=== PATIENT | male | born 1955 | race Caucasian/White ===

== ENCOUNTER → 2017-06-21 | Outpatient (CLI) | payer OTHER ==
[~2017-06-21] MED LIST: METO-333 PO; RIVA20TA PO; Sotalol Hcl PO
--- NOTE | 2017-06-21 11:48 | Diagnostic Imaging Report ---
EXAMINATION: Right lower extremity duplex venous ultrasound. TECHNIQUE: DVT protocol. Multiple sonographic images with color Doppler and waveform interrogation were performed of the right lower extremity veins with compression and augmentation maneuvers. INDICATION: Right leg swelling. FINDINGS: The right lower extremity veins from the groin to below the knee veins were examined with normal color-flow, compressibility and normal waveform demonstrated. The great saphenous vein is patent. IMPRESSION: No evidence of DVT in the right lower extremity. Dictated by: Dictated on workstation # [id number]
== END ==
LOC: RAD 10:29
PROVIDERS: ATTEND Internal Medicine Cardiovascular Disease
DX: R22.41 Localized swelling, mass and lump, right lower limb (principal); I48.0 Paroxysmal atrial fibrillation; R00.2 Palpitations

== ENCOUNTER → 2019-05-30 | Outpatient (CLI) | payer OTHER ==
[~2019-05-30] MED LIST changes: -RIVA20TA PO; +RIVA20TA2 PO
[2019-05-30 12:29] LABS: BASOPHILS % (AUTO) 0 % (0-10); EOSINOPHILS # (AUTO) 0.3 10^3/uL (0.0-0.3); EOSINOPHILS % (AUTO) 4 % (0-10); HEMATOCRIT 45 % (40-54); HEMOGLOBIN 15.5 G/DL (13.3-17.7); LYMPHOCYTES # (AUTO) 2.1 X 10^3 (1.0-4.0); LYMPHOCYTES % (AUTO) 27 % (12-44); MEAN CORPUSCULAR HEMOGLOBIN 34 PG (25-34); MEAN CORPUSCULAR HGB CONC 35 G/DL (32-36); MEAN CORPUSCULAR VOLUME 97 FL (80-99); MEAN PLATELET VOLUME 12.4 FL (7.4-10.4); MONOCYTES # (AUTO) 0.9 X 10^3 (0.0-1.0); MONOCYTES % (AUTO) 11 % (0-12); NEUTROPHILS # (AUTO) 4.4 X 10^3 (1.8-7.8); NEUTROPHILS % (AUTO) 58 % (42-75); PLATELET COUNT 187 10^3/uL (130-400); RED CELL DISTRIBUTION WIDTH 13.4 % (10.0-14.5); WHITE BLOOD COUNT 7.6 10^3/uL (4.3-11.0)
[2019-05-30 12:48] LABS: BUN/CREATININE RATIO 13; CALCIUM 9.2 MG/DL (8.5-10.1); CARBON DIOXIDE 23 MMOL/L (21-32); CHLORIDE 105 MMOL/L (98-107); CREATININE SERUM 1.11 MG/DL (0.60-1.30); GFR ESTIMATED > 60; GLUCOSE 99 MG/DL (70-105); POTASSIUM 4.4 MMOL/L (3.6-5.0); SODIUM 139 MMOL/L (135-145)
== END ==
LOC: LAB 12:16
PROVIDERS: ATTEND Internal Medicine Cardiovascular Disease
DX: I48.0 Paroxysmal atrial fibrillation (principal)
CPT/HCPCS: 36415; 80048; 83735; 85025

== ENCOUNTER → 2019-06-10 | Outpatient (CLI) | payer OTHER ==
[~2019-06-10] VITALS: Ht 188 cm; Wt 131.0 kg
[~2019-06-10] MED LIST changes: +CATHETER FLUSH 10 ML SYR IV PRN
== END ==
LOC: CARD 06:39
PROVIDERS: ATTEND Internal Medicine Cardiovascular Disease
DX: R00.2 Palpitations (principal)
CPT/HCPCS: 93017

== ENCOUNTER → 2019-06-16 | Outpatient (CLI) | payer OTHER ==
[~2019-06-16] MED LIST changes: -CATHETER FLUSH 10 ML SYR IV PRN
== END ==
LOC: CARD 10:23
PROVIDERS: ATTEND Internal Medicine Cardiovascular Disease
DX: I34.0 Nonrheumatic mitral (valve) insufficiency (principal); I51.7 Cardiomegaly; I48.0 Paroxysmal atrial fibrillation; R00.2 Palpitations
CPT/HCPCS: 93306

== ENCOUNTER 2022-07-16 03:37 | Observation (INO) | payer MEDICARE, OTHER ==
[~2022-07-16] VITALS: Ht 187.9 cm; Wt 127.3 kg
[2022-07-16] MEDS ORDERED: dilTIAZem DRIP PRE-MIX 125 ML IV SCH (04:00)
--- NOTE | 2022-07-16 04:12 | ED General ---
General Chief Complaint: Cough/Cold/Flu Symptoms Stated Complaint: SOA/COUGH Source of Information: Patient Exam Limitations: No Limitations History of Present Illness Date Seen by Provider: Jul 16, 2022 Time Seen by Provider: 03:34 Initial Comments 66-year-old male presents for chest congestion, shortness of breath since . No fevers or chills. Cough is nonproductive. Does feel significantly short of breath, especially with exertion. No sick contacts. Does have a history of atrial fibrillation. States he has not taken any medicine for atrial fibrillation since the onset of COVID as his doctor's office would not refill his medicines until he was seen in the office but they were also not seeing patients in the office. He is not on any anticoagulation. He is not having any chest pain. Allergies and Home Medications Allergies Coded Allergies: No Known Drug Allergies (Unverified , 02/11/16) Patient Home Medication List Home Medication List Reviewed: Yes Metoprolol Tartrate (Metoprolol Tartrate) 25 Mg Tablet, 25 MG PO BID Prescribed by: TON DIAZ on 02/13/16908 Rivaroxaban (Xarelto Tablet) 20 Mg Tablet, 20 MG PO DAILY@1700 Prescribed by: TON DIAZ on 02/13/16908 [Sotalol Hcl] 80 MG TAB, 80 MG PO BID Prescribed by: TON DIAZ on 02/13/16908 Review of Systems Review of Systems Constitutional: no symptoms reported EENTM: no symptoms reported Respiratory: cough, short of breath Cardiovascular: no symptoms reported Gastrointestinal: no symptoms reported Genitourinary: no symptoms reported Musculoskeletal: no symptoms reported Skin: no symptoms reported Psychiatric/Neurological: No Symptoms Reported Hematologic/Lymphatic: No Symptoms Reported Immunological/Allergic: no symptoms reported Past Kmmozhv-Demivy-Nzudwj Hx Patient Social History Tobacco Use?: No Substance use?: No Alcohol Use?: No Immunizations Up To Date Tetanus Booster (TDap): Unknown Influenza Vaccine Up-to-Date: No; Not Current Seasonal Allergies Seasonal Allergies: No Past Medical History Surgery/Hospitalization HX: AFIB (BUT DOES NOT TAKE MEDICINE SINCE "COVID STARTED" PER PT) Pneumonia Currently Using CPAP: No Currently Using BIPAP: No Reproductive Disorders: No Sexually Transmitted Disease: No HIV/AIDS: No Polyps Loss of Vision: Denies Hearing Impairment: Denies Adverse Reaction/Blood Tranf: No Family Medical History Reviewed Nursing Family Hx No Pertinent Family Hx Physical Exam Vital Signs Vital Signs - First Documented 07/16/22 03:46 Temp 36.6 Pulse 122 Resp 22 B/P (MAP) 138/109 (119) Pulse Ox 96 O2 Delivery Room Air Capillary Refill : Less Than 3 Seconds Height, Weight, BMI Height: 6'2.00" Weight: 261lbs. 0.0oz. [id number]; 37.06 BMI Method:Stated General Appearance: No Apparent Distress, WD/WN HEENT: PERRL/EOMI, TMs Normal, Normal ENT Inspection, Pharynx Normal Neck: Full Range of Motion, Normal Inspection, Non Tender, Supple Respiratory: Chest Non Tender, Lungs Clear, Normal Breath Sounds, No Accessory Muscle Use, No Respiratory Distress Cardiovascular: No Edema, No Gallop, No JVD, No Murmur, Normal Peripheral Pulses, Irregularly Irregular, Tachycardia Gastrointestinal: Normal Bowel Sounds, No Organomegaly, No Pulsatile Mass, Non Tender, Soft Extremity: Normal Capillary Refill, Normal Inspection, Normal Range of Motion, Non Tender, No Calf Tenderness, No Pedal Edema Neurologic/Psychiatric: Alert, Oriented x3, No Motor/Sensory Deficits Skin: Normal Color, Warm/Dry Progress/Results/Core Measures Suspected Sepsis SIRS Temperature: Pulse: 181 Respiratory Rate: Laboratory Tests 07/16/22 04:03: White Blood Count 12.0H Blood Pressure 151 /127 Mean: 135 Laboratory Tests 07/16/22 04:03: Creatinine 1.29, Platelet Count 183, Total Bilirubin 2.6H Results/Orders Lab Results Laboratory Tests Test 07/16/22 04:00 07/16/22 04:03 Range/Units Influenza Type A (RT-PCR) Not Detected Not Detecte Influenza Type B (RT-PCR) Not Detected Not Detecte SARS-CoV-2 RNA (RT-PCR) Not Detected Not Detecte White Blood Count 12.0 H 4.3-11.0 10^3/uL Red Blood Count 4.06 L 4.30-5.52 10^6/uL Hemoglobin 13.5 13.3-17.7 g/dL Hematocrit 41 40-54 % Mean Corpuscular Volume 102 H 80-99 fL Mean Corpuscular Hemoglobin 33 25-34 pg Mean Corpuscular Hemoglobin Concent 33 32-36 g/dL Red Cell Distribution Width 14.6 H 10.0-14.5 % Platelet Count 183 130-400 10^3/uL Mean Platelet Volume 14.5 H 9.0-12.2 fL Immature Granulocyte % (Auto) 0 % Neutrophils (%) (Auto) 79 H 42-75 % Lymphocytes (%) (Auto) 10 L 12-44 % Monocytes (%) (Auto) 10 0-12 % Eosinophils (%) (Auto) 1 0-10 % Basophils (%) (Auto) 0 0-10 % Neutrophils # (Auto) 9.5 H 1.8-7.8 10^3/uL Lymphocytes # (Auto) 1.2 1.0-4.0 10^3/uL Monocytes # (Auto) 1.2 H 0.0-1.0 10^3/uL Eosinophils # (Auto) 0.1 0.0-0.3 10^3/uL Basophils # (Auto) 0.1 0.0-0.1 10^3/uL Immature Granulocyte # (Auto) 0.1 0.0-0.1 10^3/uL Percent Immature Platelet Fraction 20.4 H 0.0-7.6 % Sodium Level 139 135-145 MMOL/L Potassium Level 3.8 3.6-5.0 MMOL/L Chloride Level 107 98-107 MMOL/L Carbon Dioxide Level 18 L 21-32 MMOL/L Anion Gap 14 5-14 MMOL/L Blood Urea Nitrogen 13 7-18 MG/DL Creatinine 1.29 0.60-1.30 MG/DL Estimat Glomerular Filtration Rate 61 BUN/Creatinine Ratio 10 Glucose Level 124 H 70-105 MG/DL Calcium Level 9.1 8.5-10.1 MG/DL Corrected Calcium 9.1 8.5-10.1 MG/DL Magnesium Level 1.7 1.6-2.4 MG/DL Total Bilirubin 2.6 H 0.1-1.0 MG/DL Aspartate Amino Transf (AST/SGOT) 36 H 5-34 U/L Alanine Aminotransferase (ALT/SGPT) 43 0-55 U/L Alkaline Phosphatase 87 40-136 U/L Troponin I 0.040 H <0.028 NG/ML B-Type Natriuretic Peptide 447.6 H <100.0 PG/ML Total Protein 6.9 6.4-8.2 GM/DL Albumin 4.0 3.2-4.5 GM/DL Smear Scan NO CLUMPS OBSERVED My Orders Orders - DEONNAVENTURA Hui DO Ekg Tracing (07/16/22 03:54) Magnesium (07/16/22 03:55) Chest 1 View, Ap/Pa Only (07/16/22 03:55) Troponin I Barbara (07/16/22 03:55) Bnp Barbara (07/16/22 03:55) Procalcitonin (Pct) (07/16/22 03:55) Cbc With Automated Diff (07/16/22 03:55) Comprehensive Metabolic Panel (07/16/22 03:55) Covid 19 Inhouse Test (07/16/22 03:55) Influenza A And B By Pcr (07/16/22 03:55) Diltiazem Injection (Cardizem Injection) (07/16/22 04:00) Diltiazem Drip Pre-Mix (Cardizem Drip Pr (07/16/22 04:00) Ed Admission (Communication) (07/16/22 05:27) Medications Given in ED Current Medications Medications Dose Ordered Sig/Feliberto Route Start Time Stop Time Status Last Admin Dose Admin Diltiazem HCl 10 mg ONCE ONCE IVP 07/16/22 04:00 07/16/22 04:02 DC 07/16/22 04:05 10 MG Vital Signs/I&O 07/16/22 07/16/22 07/16/22 07/16/22 03:46 03:46 04:05 04:06 Temp 36.6 Pulse 122 181 181 Resp 22 B/P (MAP) 138/109 (119) 151/127 Pulse Ox 96 O2 Delivery Room Air Room Air Capillary Refill : Less Than 3 Seconds Blood Pressure Mean: 135 ECG EKG : Comment Atrial fibrillation with a rate of 106 bpm. Normal intervals outside of GA interval. Left axis deviation. No ST or T wave abnormalities. No ectopy. No STEMI. Departure Communication (Admissions) 05: Spoke to Dr Ibanez. Accepts admission to ICU. Requests single dose therapeutic lovenox which i have ordered. I will write bridging orders. Impression Primary Impression: Atrial fibrillation with rapid ventricular response Additional Impression: Elevated troponin Disposition: ADMITTED INPATIENT Condition: Stable Admissions Decision to Admit Reason: Admit from ER (General) Departure-Patient Inst. Referrals: NO,LOCAL PHYSICIAN (PCP/Family) Primary Care Physician VENTURA YING DO Jul 16, 2022 04:12
[2022-07-16 04:33] LABS: BASOPHILS # (AUTO) 0.1 10^3/uL (0.0-0.1); BASOPHILS % (AUTO) 0 % (0-10); LYMPHOCYTES % (AUTO) 10 % (12-44); MEAN CORPUSCULAR HEMOGLOBIN 33 pg (25-34); MEAN CORPUSCULAR VOLUME 102 fL (80-99)
[2022-07-16 04:35] LABS: EOSINOPHILS # (AUTO) 0.1 10^3/uL (0.0-0.3); EOSINOPHILS % (AUTO) 1 % (0-10); HEMATOCRIT 41 % (40-54); HEMOGLOBIN 13.5 g/dL (13.3-17.7); LYMPHOCYTES # (AUTO) 1.2 10^3/uL (1.0-4.0); MEAN CORPUSCULAR HGB CONC 33 g/dL (32-36); MEAN PLATELET VOLUME 14.5 fL (9.0-12.2); MONOCYTES # (AUTO) 1.2 10^3/uL (0.0-1.0); MONOCYTES % (AUTO) 10 % (0-12); NEUTROPHILS # (AUTO) 9.5 10^3/uL (1.8-7.8); NEUTROPHILS % (AUTO) 79 % (42-75); PLATELET COUNT 183 10^3/uL (130-400)
[2022-07-16 04:53] LABS: POTASSIUM 3.8 MMOL/L (3.6-5.0)
[2022-07-16 04:54] LABS: CALCIUM 9.1 MG/DL (8.5-10.1)
[2022-07-16 04:55] LABS: TOTAL PROTEIN 6.9 GM/DL (6.4-8.2)
[2022-07-16 04:57] LABS: BILIRUBIN,TOTAL 2.6 MG/DL (0.1-1.0)
[2022-07-16 04:58] LABS: SMEAR SCAN COMMENT NO CLUMPS OBSERVED
[2022-07-16 04:59] LABS: CREATININE SERUM 1.29 MG/DL (0.60-1.30)
[2022-07-16 05:02] LABS: MAGNESIUM 1.7 MG/DL (1.6-2.4)
[2022-07-16] MEDS ORDERED: ENOXAPARIN 60 MG/0.6 ML (LOVENOX) SYR SC ONE (05:30)
[2022-07-16] MEDS ORDERED: CATHETER FLUSH 10 ML SYR IVP PRN (06:30)
[2022-07-16 06:31] VITALS: BP 128/112
[2022-07-16] MEDS ORDERED: RT-ALBUTEROL SULF 2.5 MG/3 ML PRE-MIX VIAL INH PRN (06:45)
[2022-07-16] MEDS ORDERED: DIGOXIN 0.25 MG/ML (LANOXIN) 2 ML AMP IV ONE (06:45)
--- NOTE | 2022-07-16 06:47 | Tele-ICU Progress Note ---
Subjective Date Seen by a Provider: Jul 16, 2022 Time Seen by a Provider: 06:45 Subjective/Events-last exam (Tele-ICU Physician , consultation) Available chart/ vitals / labs / Images reviewed H&P is from ER notes Patient's information available about PMH, allergy reviewed in EMR. ROS as per chart and RN report Video assessment done using teleICU camera, rest of exam as per RN Discussed with RN. This patient is admitted with atrial fibrillation with rapid ventricular rate currently on Cardizem drip with maximum dose of 15 mg/h still his heart rate is in [id number] for management. No telemetry ICU consult requested but patient is seen for telemetry ICU protocol. Discussed with the PYRIDINE RECOVERY OPERATOR and the patient. I have ordered digoxin 0.5 mg IV push x1 to see whether the heart rate will come down. Cardiology consultation has been requested Review of Systems General: Other (obese and stable) Sepsis Event Evaluation Height, Weight, BMI Height: 6'2.00" Weight: 261lbs. 0.0oz. 118.862189xb; 37.78 BMI Method:Stated Exam Exam Patient acknowledged, consented, and participated in this virtual visit which was conducted using real time audio/video Vital Signs Date Time Temp Pulse Resp B/P (MAP) Pulse Ox O2 Delivery O2 Flow Rate FiO2 07/16/22 06:31 36.6 123 94 21 07/16/22 06:10 36.6 123 20 128/112 94 Room Air 07/16/22 04:06 181 07/16/22 04:05 181 151/127 07/16/22 03:46 36.6 122 22 138/109 (119) 96 Room Air 07/16/22 03:46 Room Air Height & Weight Height: 6'2.00" Weight: 261lbs. 0.0oz. 118.062288tk; 37.78 BMI Method:Stated General Appearance: No Apparent Distress, WD/WN HEENT: PERRL/EOMI, TMs Normal, Normal ENT Inspection, Pharynx Normal Neck: Full Range of Motion, Normal Inspection, Non Tender, Supple Respiratory: Chest Non Tender, Lungs Clear, Normal Breath Sounds, No Accessory Muscle Use, No Respiratory Distress Cardiovascular: No Edema, No Gallop, No JVD, No Murmur, Normal Peripheral Pulses, Irregularly Irregular, Tachycardia Capillary Refill: Less Than 3 Seconds Extremity: Normal Capillary Refill, Normal Inspection, Normal Range of Motion, Non Tender, No Calf Tenderness, No Pedal Edema Neurologic/Psychiatric: Alert, Oriented x3, No Motor/Sensory Deficits Skin: Normal Color, Warm/Dry Results Lab Laboratory Tests 07/16/22 04:03 Assessment/Plan Assessment/Plan 1. Afib with rvr. plan continue cardiazem drip and give digoxin 0.5 mg ivp X1. further management per Cardiolgy Critical Care: Critically Ill Patient Time spent with patient (mins): 15 JOANIE COMBS MD Jul 16, 2022 06:47
[2022-07-16] MEDS: RT-ALBUTEROL SULF 2.5 MG/3 ML PRE-MIX VIAL INH SCH ×3 (08:25→21:32)
--- NOTE | 2022-07-16 08:43 | Diagnostic Imaging Report ---
INDICATION: Dyspnea, cough. TECHNIQUE: Single view chest 4:34 AM. CORRELATION STUDY: 02/12/2016 FINDINGS: Cardiac enlargement appears changed and more prominent from prior. Vasculature overall within normal limits. The lungs are clear with no consolidating infiltrate. There is no significant effusion or pneumothorax. IMPRESSION: 1. Cardiac enlargement, appears changed from prior. Nonspecific at to etiology but can be seen with cardiomyopathy and/or perhaps pericardial effusion. No overt failure. Dictated by: Dictated on workstation # [id number]
[2022-07-16] MEDS ORDERED: polyethylene glycoL POWDER 17 GM (MIRALAX) PACK PO PRN (09:00)
[2022-07-16] MEDS ORDERED: ANTACID SUSP 30 ML UDC (MYLANTA) PO PRN (09:00)
[2022-07-16] MEDS ORDERED: MELATONIN 3 MG TABLET PO PRN (09:00)
[2022-07-16] MEDS ORDERED: diphenhydrAMINE 50 MG/ML INJ (BENADRYL) IVP PRN (09:00)
[2022-07-16] MEDS: SENNOSIDES 8.6 MG (SENOKOT) TAB PO SCH ×2 (09:00→19:56)
[2022-07-16] MEDS ORDERED: CALCIUM CARBONATE 500 MG (TUMS) TAB.CHEW PO PRN (09:00)
[2022-07-16] MEDS: DOCUSATE SODIUM 100 MG (COLACE) CAP PO SCH ×2 (09:00→19:56)
[2022-07-16] MEDS ORDERED: MILK OF MAGNESIA 400 MG/5 ML 30 ML UDC PO PRN (09:00)
[2022-07-16] MEDS ORDERED: LACTULOSE SYRUP 10GM/15ML (ENULOSE) 30ML UDC PO PRN (09:00)
[2022-07-16] MEDS ORDERED: ACETAMINOPHEN 325 MG TABLET PO PRN (09:00)
[2022-07-16] MEDS ORDERED: ONDANSETRON 4 MG (ZOFRAN) ORAL DISSOLVE TAB PO PRN (09:00)
[2022-07-16] MEDS ORDERED: BISACODYL 10 MG SUPP (DULCOLAX) PR PRN (09:00)
[2022-07-16] MEDS ORDERED: ONDANSETRON 4 MG/2 ML (SDV) Z0FRAN IV PRN (09:00)
[2022-07-16] MEDS ORDERED: diphenhydrAMINE 25 MG TAB (BENADRYL) PO PRN (09:00)
[2022-07-16 09:11] LABS: TRIGLYCERIDES 122 MG/DL (<150); VLDL CHOLESTEROL 24 MG/DL (5-40)
[2022-07-16 09:16] LABS: CHOLESTEROL 114 MG/DL (< 200)
[2022-07-16 09:17] LABS: HDL CHOLESTEROL 45 MG/DL (40-60)
[2022-07-16] MEDS: dilTIAZem DRIP PRE-MIX 125 ML IV SCH ×2 (09:34→19:55)
--- NOTE | 2022-07-16 09:55 | Consultation-Cardiology ---
HPI-Cardiology Cardiology Consultation: Date of Consultation 07/16/22 Date of Admission 07/16/22 Attending Physician Kaye,Local Physician Admitting Physician Admitting Physician: Lynn Ibanez MD Attending Physician: Lynn Ibanez MD Consulting Physician REGGIE ALDANA JR, MD HPI: Time Seen by a Provider: 10:04 Chief Complaint: REASON FOR CONSULTATION: Atrial fibrillation and abnormal troponin level. I had the pleasure of seeing Michael in the intensive care unit at [facility] in [place], [place] today. He was previously following with one of my partners, Dr. Adorno. However, he has not been seen since the beginning of the COVID pandemic. He was not able to get refills on his medication and stopped his metoprolol, sotalol and Xarelto somewhere around 2 or 3 years ago. He had been doing reasonably well until the past several days when he started developing increasing dyspnea on exertion. He may have had some paroxysmal nocturnal dyspnea on a couple nights. He did not seek immediate medical attention. He denies any palpitations. Early this morning he got up to use the bathroom and was again experiencing dyspnea on exertion just going into the bathroom from his bedroom and he became concerned and came to the hospital for further evaluation. He was found to be in atrial fibrillation with rapid ventricular rate and was placed on intravenous diltiazem and admitted for further treatment and evaluation. Early this morning he was still having tachycardia and the eICU at the nurse give 1 dose of intravenous digoxin and his heart rate improved. When I saw the patient, he felt as though his breathing was beginning to improve. He denies any chest discomfort, orthopnea, palpitations, lightheadedness, or syncope. He has chronic, intermittent right lower extremity edema of unknown etiology that has been unchanged. He has also had a slight cough productive of some whitish and greenish sputum. Before he came to the hospital this morning, he thinks he may have had a low-grade fever last evening. Because of the atrial fibrillation, a cardiology consultation was requested. Certain portions of this document may have been dictated utilizing voice recognition technology. Inherent to this technology, typographical and grammatical errors may exist. As much as I am diligent to identify and correct these mistakes, some errors may remain in the document. Review of Systems-Cardiology Review of Systems Other comments Review of 10 organ systems is as per the history of present illness, otherwise negative. HQS-Mutnic-Mnexop Hx Patient Social History Marrital Status: Smoking Status: Never a Smoker Have you traveled recently?: No Alcohol Use?: No Pt feels they are or have been: No Immunizations Up To Date Tetanus Booster (TDap): Unknown Past Medical History PMH As described under Assessment. Family Medical History Family Medical History: The patient does not know of any family history of premature coronary artery disease in first-degree relatives. Allergies and Home Medications Allergies Coded Allergies: No Known Drug Allergies (Unverified , 02/11/16) Patient Home Medication List Home Medication List Reviewed: Yes Metoprolol Tartrate (Metoprolol Tartrate) 25 Mg Tablet, 25 MG PO BID Prescribed by: TON DIAZ on 02/13/16908 Rivaroxaban (Xarelto Tablet) 20 Mg Tablet, 20 MG PO DAILY@1700 Prescribed by: TON DIAZ on 02/13/16908 [Sotalol Hcl] 80 MG TAB, 80 MG PO BID Prescribed by: TON DIAZ on 02/13/16908 Exam Vital Signs Vital Signs Date Time Temp Pulse Resp B/P (MAP) Pulse Ox O2 Delivery O2 Flow Rate FiO2 07/16/22 09:34 116 135/98 07/16/22 09:00 23 97 Room Air 07/16/22 07:43 36.8 07/16/22 06:31 21 Physical Exam General: Alert. No acute distress. Well nourished and appears stated age. He is obese. Eye: Extraocular movements are intact. Conjunctivae are clear. There are no xanthelasma. HENT: Normocephalic. Atraumatic. Carotid pulsations 2/2 without bruits. Neck: Jugular venous pressure does not appear elevated. No thyromegaly appreciated. Respiratory: Lungs have some faint scattered wheezes bilaterally. Respirations are non-labored. Breath sounds are equal. Symmetrical chest wall expansion. Cardiovascular: Normal rate. Irregular rhythm. Distant S1/S2. No murmur. No gallop. Point of maximal impulse is not appear displaced. Good pulses equal in all extremities. 1+ right lower extremity edema without venous stasis changes. Gastrointestinal: Soft. Normal bowel sounds. Skin: Skin turgor is normal. There is no pallor. Musculoskeletal: No kyphosis or scoliosis appreciated. Neurologic: Alert and oriented to person, place, time. Cranial nerves 3-12 appear grossly intact. The patient has good motor tone strength in the upper and lower extremities bilaterally. Psychiatric: Cooperative. Appropriate mood & affect. Labs Laboratory Tests Test 07/16/22 04:00 07/16/22 04:03 07/16/22 09:28 Range/Units Influenza Type A (RT-PCR) Not Detected Not Detecte Influenza Type B (RT-PCR) Not Detected Not Detecte SARS-CoV-2 RNA (RT-PCR) Not Detected Not Detecte White Blood Count 12.0 H 4.3-11.0 10^3/uL Red Blood Count 4.06 L 4.30-5.52 10^6/uL Hemoglobin 13.5 13.3-17.7 g/dL Hematocrit 41 40-54 % Mean Corpuscular Volume 102 H 80-99 fL Mean Corpuscular Hemoglobin 33 25-34 pg Mean Corpuscular Hemoglobin Concent 33 32-36 g/dL Red Cell Distribution Width 14.6 H 10.0-14.5 % Platelet Count 183 130-400 10^3/uL Mean Platelet Volume 14.5 H 9.0-12.2 fL Immature Granulocyte % (Auto) 0 % Neutrophils (%) (Auto) 79 H 42-75 % Lymphocytes (%) (Auto) 10 L 12-44 % Monocytes (%) (Auto) 10 0-12 % Eosinophils (%) (Auto) 1 0-10 % Basophils (%) (Auto) 0 0-10 % Neutrophils # (Auto) 9.5 H 1.8-7.8 10^3/uL Lymphocytes # (Auto) 1.2 1.0-4.0 10^3/uL Monocytes # (Auto) 1.2 H 0.0-1.0 10^3/uL Eosinophils # (Auto) 0.1 0.0-0.3 10^3/uL Basophils # (Auto) 0.1 0.0-0.1 10^3/uL Immature Granulocyte # (Auto) 0.1 0.0-0.1 10^3/uL Percent Immature Platelet Fraction 20.4 H 0.0-7.6 % Sodium Level 139 135-145 MMOL/L Potassium Level 3.8 3.6-5.0 MMOL/L Chloride Level 107 98-107 MMOL/L Carbon Dioxide Level 18 L 21-32 MMOL/L Anion Gap 14 5-14 MMOL/L Blood Urea Nitrogen 13 7-18 MG/DL Creatinine 1.29 0.60-1.30 MG/DL Estimat Glomerular Filtration Rate 61 BUN/Creatinine Ratio 10 Glucose Level 124 H 70-105 MG/DL Calcium Level 9.1 8.5-10.1 MG/DL Corrected Calcium 9.1 8.5-10.1 MG/DL Magnesium Level 1.7 1.6-2.4 MG/DL Total Bilirubin 2.6 H 0.1-1.0 MG/DL Aspartate Amino Transf (AST/SGOT) 36 H 5-34 U/L Alanine Aminotransferase (ALT/SGPT) 43 0-55 U/L Alkaline Phosphatase 87 40-136 U/L Troponin I 0.040 H 0.046 H <0.028 NG/ML B-Type Natriuretic Peptide 447.6 H <100.0 PG/ML Total Protein 6.9 6.4-8.2 GM/DL Albumin 4.0 3.2-4.5 GM/DL Triglycerides Level 122 <150 MG/DL Cholesterol Level 114 < 200 MG/DL LDL Cholesterol Direct 54 1-129 MG/DL VLDL Cholesterol 24 5-40 MG/DL HDL Cholesterol 45 40-60 MG/DL Procalcitonin 0.04 <0.10 NG/ML Serum Alcohol < 10 <10 MG/DL Smear Scan NO CLUMPS OBSERVED ECG Impression ECG Comment Electrocardiogram from this morning showed atrial fibrillation with a rapid ventricular rate at 186 bpm with diffuse, nonspecific ST-T wave changes. Diagnosis/Problems Diagnosis/Problems (1) Persistent atrial fibrillation Assessment & Plan: He has atrial fibrillation of unknown duration. He had been on sotalol in the past but has not taken this for 2 or 3 years as noted above. His heart rate improved with intravenous diltiazem and 1 dose of intravenous digoxin. I will restart his metoprolol tartrate 25 mg twice a day that he was taking at home. I will resume rivaroxaban. I will obtain an echocardiogram in the morning. If we can get his heart rate under control with oral medication, we could consider discharging him to home tomorrow and have him return for an outpatient cardioversion in 4-6 weeks after an appropriate duration of anticoagulation. If we cannot get his heart rate under control, he may need a transesophageal echocardiogram and possible cardioversion prior to discharge. (2) Elevated troponin Status: Acute Assessment & Plan: I suspect he had a type II non-ST elevation myocardial infarction due to supply/demand mismatch from the tachycardia. I will start him on low strength aspirin. I will also start beta-stella. At some point, he probably will need an ischemic evaluation. I will leave this up to the discretion of his regular civil drafter, Dr. Adorno. (3) Primary hypertension Assessment & Plan: Although he does not report a history of hypertension, his blood pressures are borderline elevated while on intravenous diltiazem. I suspect he does not fact have hypertension. I will start metoprolol tartrate as outlined above. (4) Shortness of breath Assessment & Plan: I suspect this could be due to the atrial fibrillation. His BNP level is mildly elevated. His chest x-ray did not show overt pulmonary edema or an infiltrate but he does have a cough. I will give him 1 dose of intravenous furosemide and I have ordered a two-view chest x-ray for the morning. (5) Obesity Status: Chronic Assessment & Plan: He has actually been working on weight loss prior to admission. REGGIE ALDANA JR, MD Jul 16, 2022 09:55
[2022-07-16] MEDS ORDERED: meTOprolol TARTRATE 25 MG (LOPRESSOR) TABLET PO ONE (10:00)
[2022-07-16] MEDS ORDERED: ASPIRIN E.C. 81 MG (ECOTRIN) TAB PO ONE (10:00)
[2022-07-16] MEDS ORDERED: FUROSEMIDE 40 MG/4 ML INJ (LASIX) IVP ONE (10:15)
[2022-07-16] MEDS: RIVAROXABAN 20 MG TABLET (XARELTO) PO SCH (18:26)
[2022-07-16] MEDS: CATHETER FLUSH 10 ML SYR IVP SCH ×2 (18:26→20:46)
[2022-07-16] MEDS: meTOprolol TARTRATE 25 MG (LOPRESSOR) TABLET PO SCH (20:54)
--- NOTE | 2022-07-16 21:47 | History & Physical-Hospitalist ---
History of Present Illness HPI/Chief Complaint Winstno Merlos is a 66 year old male with PMH AFib who presented with shortness of breath. He denies chest pain and palpitations. He denies fevers and chills. He has had a dry cough. He reports dyspnea with exertion, but not with rest. He denies leg swelling. He denies nocturnal dyspnea. He does not smoke, drink, or use illicit drugs. He has not been taking his prescribed medications for several years, since before [facility]. Source: patient Exam Limitations: no limitations Date Seen 07/16/22 Time Seen by a Provider: 10:10 Attending Physician No,Local Physician PCP Admitting Physician: Lynn Ibanez MD Attending Physician: Lynn Ibanez MD Referring Physician Date of Admission Jul 16, 2022 at 05:30 Home Medications & Allergies Home Medications Reviewed patient Home Medication Reconciliation performed by pharmacy medication reconciliations airplane technician and/or nursing. Patients Allergies have been reviewed. Allergies Allergies Coded Allergies No Known Drug Allergies (Unverified02/11/16) Past Leerhkv-Kilgpa-Yartoh Hx Patient Social History Marrital Status: Tobacco Use?: No Smoking Status: Never a Smoker Smokeless Tobacco Frequency: Never a User Use of E-Cig and/or Vaping dev: No Substance use?: No Alcohol Use?: No Pt feels they are or have been: No Immunizations Up To Date Tetanus Booster (TDap): Unknown Seasonal Allergies Seasonal Allergies: No Current Status Advance Directives: No Primary Language: Welsh Preferred Spoken Language: Welsh Implanted or Applied Medical D: None Past Medical History Pneumonia Currently Using CPAP: No Currently Using BIPAP: No Sexually Transmitted Disease: No HIV/AIDS: No Polyps Loss of Vision: Denies Hearing Impairment: Denies Adverse Reaction/Blood Tranf: No Family Medical History Reviewed Nursing Family Hx No Pertinent Family Hx Review of Systems Constitutional: no symptoms reported EENTM: no symptoms reported Respiratory: dyspnea on exertion, short of breath Cardiovascular: no symptoms reported Gastrointestinal: no symptoms reported Physical Exam Physical Exam Vital Signs Vital Signs - First Documented 07/16/22 07/16/22 03:46 06:31 Temp 36.6 Pulse 122 Resp 22 B/P (MAP) 138/109 (119) Pulse Ox 96 O2 Delivery Room Air FiO2 21 Capillary Refill : Less Than 3 Seconds Height, Weight, BMI Height: 6'2.00" Weight: 261lbs. 0.0oz. 118.192666xy; 37.78 BMI Method:Stated General Appearance: No Apparent Distress, Obese HEENT: PERRL/EOMI, Pharynx Normal Neck: Normal Inspection, Supple Respiratory: Lungs Clear, No Respiratory Distress Cardiovascular: Irregularly Irregular, Tachycardia Gastrointestinal: Normal Bowel Sounds, Non Tender, Soft Extremity: Normal Inspection, No Pedal Edema Neurologic/Psychiatric: Alert, Oriented x3, Normal Mood/Affect Skin: Normal Color, Warm/Dry Results Results/Procedures Labs Laboratory Tests 07/16/22 04:03 Patient resulted labs reviewed. Imaging: Reviewed Imaging Report Assessment/Plan Admission Diagnosis AFib with RVR Admission Status: Observation Assessment and Plan AFib with RVR Nonadherent with medication regimen NSTEMI Obesity Cardiology consulted Troponin mildly elevated, stable, likely type II [place] Started on IV Cardizem Given Digoxin Started on Metoprolol Therapeutic Lovenox given Transitioned to Xarelto Diagnosis/Problems Diagnosis/Problems (1) Non-adherence to medical treatment (2) Atrial fibrillation with rapid ventricular response Status: Acute (3) NSTEMI (non-ST elevation myocardial infarction) Status: Acute (4) Obesity Status: Chronic Clinical Quality Measures AMI/AHF: ASA po Prior to arrival: LYNN Dao MD Jul 16, 2022 21:47
[2022-07-17] MEDS: RT-ALBUTEROL SULF 2.5 MG/3 ML PRE-MIX VIAL INH SCH ×4 (02:50→19:18)
[2022-07-17] MEDS: CATHETER FLUSH 10 ML SYR IVP SCH ×3 (04:20→21:51)
[2022-07-17 05:29] LABS: BASOPHILS % (AUTO) 1 % (0-10); MONOCYTES # (AUTO) 1.2 10^3/uL (0.0-1.0)
[2022-07-17 05:31] LABS: EOSINOPHILS # (AUTO) 0.3 10^3/uL (0.0-0.3); EOSINOPHILS % (AUTO) 3 % (0-10); HEMATOCRIT 36 % (40-54); LYMPHOCYTES # (AUTO) 1.3 10^3/uL (1.0-4.0); LYMPHOCYTES % (AUTO) 15 % (12-44); MEAN CORPUSCULAR HEMOGLOBIN 34 pg (25-34); MEAN CORPUSCULAR HGB CONC 34 g/dL (32-36); MEAN CORPUSCULAR VOLUME 101 fL (80-99); MEAN PLATELET VOLUME 13.9 fL (9.0-12.2); MONOCYTES % (AUTO) 15 % (0-12); NEUTROPHILS # (AUTO) 5.4 10^3/uL (1.8-7.8); NEUTROPHILS % (AUTO) 66 % (42-75); PLATELET COUNT 141 10^3/uL (130-400); WHITE BLOOD COUNT 8.2 10^3/uL (4.3-11.0)
[2022-07-17 05:43] LABS: ALBUMIN 3.6 GM/DL (3.2-4.5); BILIRUBIN,TOTAL 1.8 MG/DL (0.1-1.0); CALCIUM 8.6 MG/DL (8.5-10.1); CREATININE SERUM 1.16 MG/DL (0.60-1.30); MAGNESIUM 1.6 MG/DL (1.6-2.4)
[2022-07-17] MEDS: MAGNESIUM 1 GM/100 ML IVPB 100 ML IV SCH ×3 (05:51→06:49)
[2022-07-17] MEDS: POTASSIUM CL 10MEQ/50ML IVPB 50 ML IV SCH ×6 (05:51→10:14)
[2022-07-17] MEDS: KCL 20 MEQ TAB (K-DUR) PO SCH (05:51)
[2022-07-17 05:55] LABS: TOTAL PROTEIN 6.1 GM/DL (6.4-8.2)
[2022-07-17] MEDS ORDERED: NS IV 500 ML 500 ML IV PRN (06:00)
--- NOTE | 2022-07-17 08:59 | Progress Note - Cardiology ---
Cardiology SOAP Progress Note Objective: I&O/Vital Signs 07/17/22 07/17/22 07/17/22 07/18/22 23:00 23:40 23:45 00:00 Temp 36.5 Pulse 85 101 Resp 13 10 B/P (MAP) 124/89 (101) 116/90 (98) Pulse Ox 100 99 100 O2 Delivery Room Air Room Air Room Air 07/18/22 07/18/22 07/18/22 07/18/22 01:00 01:00 02:00 02:58 Pulse 80 90 76 Resp 18 16 B/P (MAP) 96/65 (74) 110/79 (90) Pulse Ox 100 98 100 O2 Delivery Room Air Room Air Room Air 07/18/22 07/18/22 07/18/22 07/18/22 03:00 04:00 04:00 05:00 Temp 36.5 Pulse 104 86 86 Resp 25 20 16 B/P (MAP) 113/84 (94) 109/78 (88) 107/73 (84) Pulse Ox 100 100 100 96 O2 Delivery Room Air Room Air Room Air Room Air 07/18/22 07/18/22 07/18/22 07/18/22 06:00 07:00 07:25 07:57 Temp 36.6 Pulse 84 84 86 Resp 17 16 B/P (MAP) 92/79 (83) 106/73 (84) Pulse Ox 100 100 O2 Delivery Room Air Room Air 07/18/22 07/18/22 07/18/22 08:00 08:00 10:00 Pulse 110 Resp 27 B/P (MAP) 125/105 (112) Pulse Ox 99 100 100 O2 Delivery Room Air Room Air Room Air 07/18/22 00:00 Intake Total 1650 ml Output Total 1100 ml Balance 550 ml Weight (Pounds): 261 Weight (Ounces): 0.0 Weight (Calculated Kilograms): 118.668259 Results/Procedures: Labs Laboratory Tests 07/17/22 16:45: Sodium Level 138, Potassium Level 3.7, Chloride Level 104, Carbon Dioxide Level 26, Anion Gap 8, Blood Urea Nitrogen 13, Creatinine 0.99, Estimat Glomerular Filtration Rate 84, BUN/Creatinine Ratio 13, Glucose Level 100, Calcium Level 8.2L 07/18/22 04:05: Sodium Level 140, Potassium Level 3.6, Chloride Level 105, Carbon Dioxide Level 20L, Anion Gap 15H, Blood Urea Nitrogen 11, Creatinine 0.89, Estimat Glomerular Filtration Rate 95, BUN/Creatinine Ratio 12, Glucose Level 83, Calcium Level 8.6, White Blood Count 7.1, Red Blood Count 3.65L, Hemoglobin 12.3L, Hematocrit 37L, Mean Corpuscular Volume 100H, Mean Corpuscular Hemoglobin 34, Mean Corpuscular Hemoglobin Concent 34, Red Cell Distribution Width 14.6H, Platelet Count 149, Mean Platelet Volume 13.6H, Immature Granulocyte % (Auto) 0, Neutrophils (%) (Auto) 63, Lymphocytes (%) (Auto) 17, Monocytes (%) (Auto) 15H, Eosinophils (%) (Auto) 4, Basophils (%) (Auto) 1, Neutrophils # (Auto) 4.4, Lymphocytes # (Auto) 1.2, Monocytes # (Auto) 1.1H, Eosinophils # (Auto) 0.3, Basophils # (Auto) 0.0, Immature Granulocyte # (Auto) 0.0, Corrected Calcium 9.0, Phosphorus Level 2.3, Magnesium Level 2.1, Total Bilirubin 1.4H, Aspartate Amino Transf (AST/SGOT) 36H, Alanine Aminotransferase (ALT/SGPT) 40, Alkaline Phosphatase 75, Total Protein 6.4, Albumin 3.5 A/P: Assessment: PAF with RVR - remains in a-fib with controlled rate on Cardizem gtt - OAC with Xarelto - has not been taking for 2-3 yrs Minimal troponin elevation - likely Type 2 CA d/t a-fib with RVR Echocardiogram of 06-16-2019 showed LVEF 55-65%. Mild MR. RVSP appox 20 mmHg ETT of 06-10-2019 showed no evidence of ischemia or arrhythmia. Relatively low exercise capacity Hypokalemia Plan: PAF with RVR - rate currently controlled on IV Cardizem - change to oral - Xarelto for stroke prophylaxis has been resumed (07-16-22) Advise echocardiogram to eval structure and function Hypokalemic today - replace Monitor lab closely We have reviewed Dr. Velarde note from the weekend Clinical Quality Measures AMI/AHF: ASA po Prior to arrival: JACKIE Pelletier Jul 17, 2022 08:59
[2022-07-17] MEDS: meTOprolol TARTRATE 25 MG (LOPRESSOR) TABLET PO SCH (09:09)
[2022-07-17] MEDS: ASPIRIN E.C. 81 MG (ECOTRIN) TAB PO SCH (09:09)
[2022-07-17] MEDS: SENNOSIDES 8.6 MG (SENOKOT) TAB PO SCH ×2 (09:13→20:17)
[2022-07-17] MEDS: DOCUSATE SODIUM 100 MG (COLACE) CAP PO SCH ×2 (09:13→20:17)
[2022-07-17] MEDS ORDERED: DIGOXIN 0.25 MG/ML (LANOXIN) 2 ML AMP IV ONE (09:30)
--- NOTE | 2022-07-17 09:59 | Diagnostic Imaging Report ---
INDICATION: Dyspnea PA and lateral views of the chest are obtained. COMPARISON: 02/12/2016 FINDINGS: Overall heart size and pulmonary vascularity are within normal limits. There is no evidence of pneumothorax or consolidation. There is questionable small amount of posterior pleural fluid or thickening. No other changes seen. IMPRESSION: Possible small posterior pleural effusions or pleural thickening without other evidence of acute abnormality. Dictated by: Dictated on workstation # [id number]
--- NOTE | 2022-07-17 11:37 | Progress Note - Hospitalist ---
Subjective HPI/CC On Admission Date Seen by Provider: Jul 17, 2022 Winston Merlos is a 66 year old male with PMH AFib who presented with shortness of breath. He denies chest pain and palpitations. He denies fevers and chills. He has had a dry cough. He reports dyspnea with exertion, but not with rest. He denies leg swelling. He denies nocturnal dyspnea. He does not smoke, drink, or use illicit drugs. He has not been taking his prescribed medications for several years, since before COVID. Subjective/Events-last exam Pt reports doing well. HR well controlled. No complaints. registered diet technician at bedside to get echo. Objective Exam Vital Signs Vital Signs Date Time Temp Pulse Resp B/P (MAP) Pulse Ox O2 Delivery O2 Flow Rate FiO2 07/17/22 11:00 85 24 117/81 (93) 95 Room Air 07/17/22 08:00 36.5 07/16/22 06:31 21 Capillary Refill : Less Than 3 Seconds General Appearance: No Apparent Distress, WD/WN Respiratory: Lungs Clear, No Respiratory Distress Cardiovascular: Regular Rate, Rhythm, No Murmur Gastrointestinal: Normal Bowel Sounds, Soft Neurologic/Psychiatric: Alert, Oriented x3 Results/Procedures Lab Laboratory Tests 07/17/22 04:37 Patient resulted labs reviewed. Imaging: Reviewed Imaging Report Assessment/Plan Assessment and Plan Assess & Plan/Chief Complaint AFib with RVR Nonadherent with medication regimen NSTEMI Obesity Cardiology consulted Troponin mildly elevated, stable, likely type II [place] IV Cardizem- attempt to titrate off Discussed with DAVY Auguste for Dr Adorno Continue Metoprolol Therapeutic Lovenox given Xarelto for stroke ppx Critical Care Critically Ill Patient Clinical Quality Measures AMI/AHF: ASA po Prior to arrival: KOREY Lancaster MD Jul 17, 2022 11:37
--- NOTE | 2022-07-17 12:03 | Progress Note - Cardiology ---
Cardiology SOAP Progress Note Subjective: No cp or palp or syncope No shortness of breath at rest Some gen weakness and malaise, improving No n/v/d Objective: I&O/Vital Signs 07/17/22 07/17/22 07/17/22 07/17/22 01:00 01:00 02:00 02:50 Pulse 101 101 97 Resp 16 19 B/P (MAP) 106/78 (81) 101/74 (81) Pulse Ox 95 93 99 O2 Delivery Room Air Room Air Room Air 07/17/22 07/17/22 07/17/22 07/17/22 03:00 04:00 04:00 04:15 Temp 36.6 Pulse 104 101 Resp 17 17 B/P (MAP) 111/84 (93) 105/74 (82) Pulse Ox 93 97 92 O2 Delivery Room Air Room Air Room Air Room Air 07/17/22 07/17/22 07/17/22 07/17/22 05:00 06:00 07:00 07:14 Pulse 93 98 89 Resp 22 13 B/P (MAP) 94/74 (87) 103/72 (82) 91/68 (76) Pulse Ox 93 95 92 95 O2 Delivery Room Air Room Air Room Air Room Air 07/17/22 07/17/22 07/17/22 07/17/22 07:27 08:00 08:00 09:00 Temp 36.5 Pulse 103 88 105 Resp 19 25 B/P (MAP) 96/68 (77) 108/88 (95) Pulse Ox 90 96 O2 Delivery Room Air Room Air 07/17/22 07/17/22 10:00 11:00 Pulse 80 85 Resp 14 24 B/P (MAP) 104/76 (85) 117/81 (93) Pulse Ox 96 95 O2 Delivery Room Air Room Air 07/17/22 00:00 Intake Total 1550 ml Output Total 2650 ml Balance -1100 ml Weight (Pounds): 261 Weight (Ounces): 0.0 Weight (Calculated Kilograms): 118.436087 Constitutional: AAO x 3, well-developed, well-nourished Respiratory: No accessory muscle use; other (good, bilat air entry) Cardiovascular: irregularly irregular, S1 and S2, systolic murmur (soft ROXANNE at card base) Gastrointestional: No tender; soft; No guarding, No rebound; audible bowel sounds Extremities: No clubbing, No cyanosis, No significant edema Neurologic/Psychiatric: oriented x 3, other (moves all limbs equally) Skin: warm/dry; No rash on exposed areas, No ulcerations on exposed areas Results/Procedures: Labs Laboratory Tests 07/17/22 04:37: White Blood Count 8.2, Red Blood Count 3.54L, Hemoglobin 12.0L, Hematocrit 36L, Mean Corpuscular Volume 101H, Mean Corpuscular Hemoglobin 34, Mean Corpuscular Hemoglobin Concent 34, Red Cell Distribution Width 14.6H, Platelet Count 141, Mean Platelet Volume 13.9H, Immature Granulocyte % (Auto) 1, Neutrophils (%) (Auto) 66, Lymphocytes (%) (Auto) 15, Monocytes (%) (Auto) 15H, Eosinophils (%) (Auto) 3, Basophils (%) (Auto) 1, Neutrophils # (Auto) 5.4, Lymphocytes # (Auto) 1.3, Monocytes # (Auto) 1.2H, Eosinophils # (Auto) 0.3, Basophils # (Auto) 0.0, Immature Granulocyte # (Auto) 0.0, Percent Immature Platelet Fraction 15.1H, Sodium Level 140, Potassium Level 3.0L, Chloride Level 103, Carbon Dioxide Level 21, Anion Gap 16H, Blood Urea Nitrogen 14, Creatinine 1.16, Estimat Glomerular Filtration Rate 69, BUN/Creatinine Ratio 12, Glucose Level 99, Calcium Level 8.6, Corrected Calcium 8.9, Phosphorus Level 3.0, Magnesium Level 1.6, Total Bilirubin 1.8H, Aspartate Amino Transf (AST/SGOT) 29, Alanine Aminotransferase (ALT/SGPT) 39, Alkaline Phosphatase 74, Total Protein 6.1L, Albumin 3.6 Laboratory Tests 07/16/22 04:03 07/17/22 04:37 A/P: Assessment: PAF with RVR - remains in a-fib with controlled rate on Cardizem gtt - OAC with Xarelto - has not been taking for 2-3 yrs Minimal troponin elevation - likely Type 2 [place] d/t a-fib with RVR Echocardiogram of 06-16-2019 showed LVEF 55-65%. Mild MR. RVSP appox 20 mmHg ETT of 06-10-2019 showed no evidence of ischemia or arrhythmia. Relatively low exercise capacity Hypokalemia Plan: PAF with RVR - rate currently controlled on IV Cardizem - change to oral - Xarelto for stroke prophylaxis has been resumed (07-16-22) Advise echocardiogram to eval structure and function Hypokalemic today - replace Monitor lab closely We have reviewed Dr. Velarde note from the weekend Clinical Quality Measures AMI/AHF: ASA po Prior to arrival: GENEVIEVE Hyde MD FACP FAC CCDS Jul 17, 2022 12:03
--- NOTE | 2022-07-17 12:12 | Tele-ICU Progress Note ---
Subjective Date Seen by a Provider: Jul 17, 2022 Time Seen by a Provider: 12:11 Subjective/Events-last exam (Tele-ICU Physician , Progress Note ) Service provided via interactive audio and video telecommunications E-CARE system to a patient admitted to ICU bed in [facility]. Available chart/ vitals / labs / Images reviewed Video assessment done using teleICU camera, rest of exam as per RN Discussed with RN Events overnight : Afebrile hemodynamically stable Respiratory - I/O = Drips: Pressors- no Patient is seen today due to persistent a fib rvr A/P PAF with RVR - remains in a-fib with controlled rate on Cardizem gtt- Po STARTED - plans to wean off gtt - OAC with Xarelto - replacing lyes - possible cardioversion - as per cardfs Minimal troponin elevation - likely Type 2 [place] d/t a-fib with RVR Echocardiogram of 06-16-2019 showed LVEF 55-65%. Mild MR. RVSP appox 20 mmHg Lines : peripg , (Central Line Necessity Reviewed) [place]: void OG: Nutrition:po Analgesia: Anxiety/ delirium VTE Prophylaxis: xarelto Stress Ulcer Prophylaxis: na Plans in collaboration with bedside consultants and IM MDs. Discussed with RN to reach out if any questions or concerns A total of 20 minutes of critical care time was devoted to this patient today, required to treat and/or prevent further deterioration of critical care condition ( as above ) . I am remotely monitoring this patient from another state. I am unable to do the bedside exam, and history/physical and pertinent information is taken from other notes in the computer and bedside staff. Sepsis Event Evaluation Height, Weight, BMI Height: 6'2.00" Weight: 261lbs. 0.0oz. 118.313922og; 36.53 BMI Method:Stated Exam Exam Patient acknowledged, consented, and participated in this virtual visit which was conducted using real time audio/video Vital Signs Date Time Temp Pulse Resp B/P (MAP) Pulse Ox O2 Delivery O2 Flow Rate FiO2 07/17/22 11:00 85 24 117/81 (93) 95 Room Air 07/17/22 10:00 80 14 104/76 (85) 96 Room Air 07/17/22 09:00 105 25 108/88 (95) 96 Room Air 07/17/22 08:00 36.5 07/17/22 08:00 88 19 96/68 (77) 90 Room Air 07/17/22 07:27 103 07/17/22 07:14 95 Room Air 07/17/22 07:00 89 13 91/68 (76) 92 Room Air 07/17/22 06:00 98 22 103/72 (82) 95 Room Air 07/17/22 05:00 93 94/74 (87) 93 Room Air 07/17/22 04:15 36.6 Room Air 07/17/22 04:00 101 17 105/74 (82) 92 Room Air 07/17/22 04:00 97 Room Air 07/17/22 03:00 104 17 111/84 (93) 93 Room Air 07/17/22 02:50 99 Room Air 07/17/22 02:00 97 19 101/74 (81) 93 Room Air 07/17/22 01:00 101 07/17/22 01:00 101 16 106/78 (81) 95 Room Air 07/17/22 00:00 84 18 104/73 (83) 97 Room Air 07/16/22 23:20 93 Room Air 07/16/22 23:15 36.8 93 16 104/78 (87) 93 Room Air 07/16/22 23:00 85 18 109/76 (88) 96 Room Air 07/16/22 22:00 92 19 105/71 (89) 95 Room Air 07/16/22 21:32 100 Room Air 07/16/22 21:00 87 20 110/70 (93) 94 Room Air 07/16/22 20:00 84 19 101/77 (88) 95 Room Air 07/16/22 19:55 71 99/73 07/16/22 19:45 92 Room Air 07/16/22 19:00 85 07/16/22 19:00 36.8 79 20 107/82 (90) 92 Room Air 07/16/22 18:00 88 17 108/73 (85) 93 Room Air 07/16/22 17:00 94 17 104/65 (78) 96 Room Air 07/16/22 16:00 85 20 100/69 (79) 95 Room Air 07/16/22 16:00 99 Room Air 07/16/22 16:00 36.2 07/16/22 15:17 99 Room Air 07/16/22 15:00 77 16 100/85 (90) 93 Room Air 07/16/22 14:00 73 17 112/82 (92) 94 Room Air 07/16/22 13:00 77 15 105/89 (94) 90 Room Air 07/16/22 12:47 36.4 07/16/22 12:39 90 I & O 07/17/22 07:00 Intake Total 2300 ml Output Total 3175 ml Balance -875 ml Height & Weight Height: 6'2.00" Weight: 261lbs. 0.0oz. 118.625012bw; 36.53 BMI Method:Stated General Appearance: No Apparent Distress, WD/WN HEENT: PERRL/EOMI, Pharynx Normal Neck: Normal Inspection, Supple Respiratory: Lungs Clear, No Respiratory Distress Cardiovascular: Regular Rate, Rhythm, No Murmur Capillary Refill: Less Than 3 Seconds Extremity: Normal Inspection, No Pedal Edema Neurologic/Psychiatric: Alert, Oriented x3 Skin: Normal Color, Warm/Dry Results Lab Laboratory Tests 07/16/22 04:03 07/17/22 04:37 Assessment/Plan Assessment/Plan 1 STEVEN CORNEJO MD Jul 17, 2022 12:11
[2022-07-17] MEDS: RIVAROXABAN 20 MG TABLET (XARELTO) PO SCH (17:04)
[2022-07-17 17:17] LABS: POTASSIUM 3.7 MMOL/L (3.6-5.0)
[2022-07-17 17:18] LABS: CALCIUM 8.2 MG/DL (8.5-10.1)
[2022-07-17 17:22] LABS: CREATININE SERUM 0.99 MG/DL (0.60-1.30)
[2022-07-18] MEDS: RT-ALBUTEROL SULF 2.5 MG/3 ML PRE-MIX VIAL INH SCH ×2 (02:57→10:00)
[2022-07-18 04:31] LABS: BASOPHILS % (AUTO) 1 % (0-10); EOSINOPHILS # (AUTO) 0.3 10^3/uL (0.0-0.3); EOSINOPHILS % (AUTO) 4 % (0-10); HEMATOCRIT 37 % (40-54); HEMOGLOBIN 12.3 g/dL (13.3-17.7); LYMPHOCYTES # (AUTO) 1.2 10^3/uL (1.0-4.0); LYMPHOCYTES % (AUTO) 17 % (12-44); MEAN CORPUSCULAR HEMOGLOBIN 34 pg (25-34); MEAN CORPUSCULAR HGB CONC 34 g/dL (32-36); MEAN CORPUSCULAR VOLUME 100 fL (80-99); MEAN PLATELET VOLUME 13.6 fL (9.0-12.2); MONOCYTES # (AUTO) 1.1 10^3/uL (0.0-1.0); MONOCYTES % (AUTO) 15 % (0-12); NEUTROPHILS # (AUTO) 4.4 10^3/uL (1.8-7.8); NEUTROPHILS % (AUTO) 63 % (42-75); PLATELET COUNT 149 10^3/uL (130-400); WHITE BLOOD COUNT 7.1 10^3/uL (4.3-11.0)
[2022-07-18 04:55] LABS: ALBUMIN 3.5 GM/DL (3.2-4.5); BILIRUBIN,TOTAL 1.4 MG/DL (0.1-1.0); CALCIUM 8.6 MG/DL (8.5-10.1); CREATININE SERUM 0.89 MG/DL (0.60-1.30); MAGNESIUM 2.1 MG/DL (1.6-2.4); PHOSPHORUS 2.3 MG/DL (2.3-4.7); POTASSIUM 3.6 MMOL/L (3.6-5.0); TOTAL PROTEIN 6.4 GM/DL (6.4-8.2)
[2022-07-18] MEDS: POTASSIUM CL 10MEQ/50ML IVPB 50 ML IV SCH ×2 (05:05→05:14)
[2022-07-18] MEDS: MAGNESIUM 1 GM/100 ML IVPB 100 ML IV SCH (05:06)
[2022-07-18] MEDS: KCL 20 MEQ TAB (K-DUR) PO SCH (05:06)
[2022-07-18] MEDS: CATHETER FLUSH 10 ML SYR IVP SCH ×2 (05:14→14:30)
[2022-07-18] MEDS ORDERED: NS IV 1000 ML 1,000 ML IV ONE (08:00)
[2022-07-18] MEDS: ASPIRIN E.C. 81 MG (ECOTRIN) TAB PO SCH (08:23)
[2022-07-18] MEDS: DOCUSATE SODIUM 100 MG (COLACE) CAP PO SCH (09:33)
[2022-07-18] MEDS: SENNOSIDES 8.6 MG (SENOKOT) TAB PO SCH (09:33)
--- NOTE | 2022-07-18 09:47 | Progress Note - Hospitalist ---
Subjective HPI/CC On Admission Date Seen by Provider: Jul 18, 2022 Winston Merlos is a 66 year old male with PMH AFib who presented with shortness of breath. He denies chest pain and palpitations. He denies fevers and chills. He has had a dry cough. He reports dyspnea with exertion, but not with rest. He denies leg swelling. He denies nocturnal dyspnea. He does not smoke, drink, or use illicit drugs. He has not been taking his prescribed medications for several years, since before COVID. Subjective/Events-last exam Pt very frustrated. Reports he is not consenting to cardiac cath until talking to the therapeutic strategy lead. He is hopeful to be able to go home today. Objective Exam Vital Signs Vital Signs Date Time Temp Pulse Resp B/P (MAP) Pulse Ox O2 Delivery O2 Flow Rate FiO2 07/18/22 08:00 110 27 125/105 (112) 99 Room Air 07/18/22 07:57 36.6 07/16/22 06:31 21 Capillary Refill : Less Than 3 Seconds General Appearance: No Apparent Distress, Obese Respiratory: Lungs Clear, No Respiratory Distress Cardiovascular: No Murmur, Irregularly Irregular; No Tachycardia Gastrointestinal: Normal Bowel Sounds, Soft Neurologic/Psychiatric: Alert, Oriented x3 Results/Procedures Lab Laboratory Tests 07/17/22 16:45 07/18/22 04:05 Patient resulted labs reviewed. Imaging: Reviewed Imaging Report Assessment/Plan Assessment and Plan Assess & Plan/Chief Complaint AFib with RVR Nonadherent with medication regimen NSTEMI Obesity Cardiology consulted Troponin mildly elevated, stable, likely type II [place] Did well with transition to oral cardizem Discussed with DAVY Auguste for Dr Adorno Continue Metoprolol Xarelto for stroke ppx Dr Adorno recommended cardioversion but patient hesitant- defer to Dr Adorno Critical Care Critically Ill Patient Clinical Quality Measures AMI/AHF: ASA po Prior to arrival: KOREY Lancaster MD Jul 18, 2022 09:47
[2022-07-18] MEDS ORDERED: DIGO250T15 PO ×2 (12:34)
[2022-07-18] MEDS ORDERED: DILT180C85 PO ×2 (12:34)
[2022-07-18] MEDS ORDERED: CARV3.122 PO ×2 (12:34)
[2022-07-18] MEDS ORDERED: RIVA20TA2 PO ×2 (12:34)
--- NOTE | 2022-07-18 12:38 | Progress Note - Cardiology ---
Cardiology SOAP Progress Note Subjective: Denies cp or palp or syncope or shortness of breath or swelling Denies n/v/d Wants to go home Objective: I&O/Vital Signs 07/18/22 07/18/22 07/18/22 07/18/22 01:00 01:00 02:00 02:58 Pulse 80 90 76 Resp 18 16 B/P (MAP) 96/65 (74) 110/79 (90) Pulse Ox 100 98 100 O2 Delivery Room Air Room Air Room Air 07/18/22 07/18/22 07/18/22 07/18/22 03:00 04:00 04:00 05:00 Temp 36.5 Pulse 104 86 86 Resp 25 20 16 B/P (MAP) 113/84 (94) 109/78 (88) 107/73 (84) Pulse Ox 100 100 100 96 O2 Delivery Room Air Room Air Room Air Room Air 07/18/22 07/18/22 07/18/22 07/18/22 06:00 07:00 07:25 07:57 Temp 36.6 Pulse 84 84 86 Resp 17 16 B/P (MAP) 92/79 (83) 106/73 (84) Pulse Ox 100 100 O2 Delivery Room Air Room Air 07/18/22 07/18/22 07/18/22 07/18/22 08:00 08:00 09:00 10:00 Pulse 110 84 Resp 27 20 B/P (MAP) 125/105 (112) 127/67 (87) Pulse Ox 99 100 95 100 O2 Delivery Room Air Room Air Room Air Room Air 07/18/22 07/18/22 10:00 11:00 Pulse 104 100 Resp 26 40 B/P (MAP) 93/67 (76) 95/55 (68) Pulse Ox 95 98 O2 Delivery Room Air Room Air 07/18/22 00:00 Intake Total 1650 ml Output Total 1100 ml Balance 550 ml Weight (Pounds): 261 Weight (Ounces): 0.0 Weight (Calculated Kilograms): 118.348463 Constitutional: AAO x 3, well-developed, well-nourished Respiratory: No accessory muscle use; other (good, bilat air entry) Cardiovascular: irregularly irregular, S1 and S2, systolic murmur (soft ROXANNE at card base) Gastrointestional: No tender; soft; No guarding, No rebound; audible bowel sounds Extremities: No clubbing, No cyanosis, No significant edema Neurologic/Psychiatric: oriented x 3, other (moves all limbs equally) Skin: warm/dry; No rash on exposed areas, No ulcerations on exposed areas Results/Procedures: Labs Laboratory Tests 07/17/22 16:45: Sodium Level 138, Potassium Level 3.7, Chloride Level 104, Carbon Dioxide Level 26, Anion Gap 8, Blood Urea Nitrogen 13, Creatinine 0.99, Estimat Glomerular Filtration Rate 84, BUN/Creatinine Ratio 13, Glucose Level 100, Calcium Level 8.2L 07/18/22 04:05: Sodium Level 140, Potassium Level 3.6, Chloride Level 105, Carbon Dioxide Level 20L, Anion Gap 15H, Blood Urea Nitrogen 11, Creatinine 0.89, Estimat Glomerular Filtration Rate 95, BUN/Creatinine Ratio 12, Glucose Level 83, Calcium Level 8.6, White Blood Count 7.1, Red Blood Count 3.65L, Hemoglobin 12.3L, Hematocrit 37L, Mean Corpuscular Volume 100H, Mean Corpuscular Hemoglobin 34, Mean Corpuscular Hemoglobin Concent 34, Red Cell Distribution Width 14.6H, Platelet Count 149, Mean Platelet Volume 13.6H, Immature Granulocyte % (Auto) 0, Neutrophils (%) (Auto) 63, Lymphocytes (%) (Auto) 17, Monocytes (%) (Auto) 15H, Eosinophils (%) (Auto) 4, Basophils (%) (Auto) 1, Neutrophils # (Auto) 4.4, Lymphocytes # (Auto) 1.2, Monocytes # (Auto) 1.1H, Eosinophils # (Auto) 0.3, Basophils # (Auto) 0.0, Immature Granulocyte # (Auto) 0.0, Corrected Calcium 9.0, Phosphorus Level 2.3, Magnesium Level 2.1, Total Bilirubin 1.4H, Aspartate Amino Transf (AST/SGOT) 36H, Alanine Aminotransferase (ALT/SGPT) 40, Alkaline Phosphatase 75, Total Protein 6.4, Albumin 3.5 Laboratory Tests 07/17/22 04:37 07/17/22 16:45 07/18/22 04:05 A/P: Assessment: PAF with RVR - remains in a-fib with controlled rate on Cardizem gtt - OAC with Xarelto - has not been taking for 2-3 yrs Minimal troponin elevation - likely Type 2 [place] d/t a-fib with RVR Dilated cardiomyopathy of undetermined etiology - Echo of 07-17-22: LVEF 30-35%, global hypo that is somewhat more marked at the apex, mod to sev MR and TR, marked enlargement of LA, PASP 40-45 mmHg (significantly changed compared to echocardiogram of 06-16-2019 that showed LVEF 55-65%. Mild MR. RVSP appox 20 mmHg) Hypokalemia - corrected Plan: * Complex management * Several issues reviewed and discussed in great detail (see belos) * Cath advised. He refuses * Advised to continue hospitalization for adjustment of heart failure regiment to bp, heart rate, symptoms, and labs. He refuses * Advised Life Vest. He agrees. We have ordered * BP does not allow all the heart failure meds. Also need to continue some dilt to control heart rate. Will reduce dilt to allow more room on bp to start carvedilol. Also add dig. Not suitable for OMAR-inhib or ARB or Entresto because of low bp * Advised to continue oral anticoag for stroke prophylaxis * Advised close clinical f/u and also f/u on labs * He fully understands all of the above issues * Advised to return to ER for any recurrent symptoms or new symptoms Clinical Quality Measures AMI/AHF: ASA po Prior to arrival: GENEVIEVE Hyde MD FACP FAC CCDS Jul 18, 2022 12:38
--- NOTE | 2022-07-18 13:17 | Discharge Inst-Simple/Standard ---
Discharge Inst-Standard Discharge Medications New, Converted or Re-Newed RX: Transmitted to Pharmacy Patient Instructions/Follow Up Plan of Care/Instructions/FU: Please continue to take your medications as written. Please follow up with your primary care doctor to follow up this hospital stay. Activity as Tolerated: Yes Discharge Diet: No Restrictions Return to The Hospital For: Chest pain, shortness of breath, fever, weakness, if you feel you are getting worse. KOREY DIAMOND MD Jul 18, 2022 13:17
[2022-07-18] MEDS ORDERED: DIGOXIN 0.25 MG (LANOXIN) TAB PO NR (15:45)
[2022-07-18] MEDS: RIVAROXABAN 20 MG TABLET (XARELTO) PO SCH (16:48)
[2022-07-18 18:17] VITALS: BP 95/55
[2022-07-19] MEDS ORDERED: DIGOXIN 0.25 MG (LANOXIN) TAB PO SCH (09:00)
[2022-08-08] MEDS ORDERED: DILT180C48 PO ×2 (07:33)
[2022-08-08] MEDS ORDERED: RIVA20TA PO ×2 (07:33)
[2022-08-08] MEDS ORDERED: CARV3.122 PO ×2 (07:33)
[2022-08-08] MEDS ORDERED: DIGO250T3 PO ×2 (07:33)
== END 2022-07-18 16:15 | disposition home or self-care (01) ==
LOC: EDUNIT# 03:37 → ER 03:39 → ICU 05:30 → UNDOADMOB 05:30 → ICU 08:15 → UNDODISOB 07-18 16:15
PROVIDERS: ADMIT Internal Medicine; ATTEND Internal Medicine
DX: I48.19 Other persistent atrial fibrillation (principal); I21.4 Non-ST elevation (NSTEMI) myocardial infarction; E66.9 Obesity, unspecified; Z91.14 Patient's other noncompliance with medication regimen; Z79.01 Long term (current) use of anticoagulants; Z79.899 Other long term (current) drug therapy; I10 Essential (primary) hypertension; Z68.36 Body mass index [BMI] 36.0-36.9, adult; I08.1 Rheumatic disorders of both mitral and tricuspid valves
CPT/HCPCS: 71045; 71046; 80048; 80053 ×3; 80061; 83036; 83735 ×3; 83880; 84100 ×2; 84145; 84443; 84484; 85025 ×3; 87636; 93005; 94640 ×4; 94664; 96366 ×3; 96372; 96374; 96375; 96376 ×2; 99285; C8929; G0378; G0480; 36415; 80320; 93306

== ENCOUNTER 2022-08-08 09:00 | Day surgery (SDC) | payer MEDICARE, OTHER ==
[2022-08-08] VITALS (9 sets, daily range): BP systolic 98–142; BP diastolic 69–84
[~2022-08-08] VITALS: Ht 188 cm; Wt 124.4 kg
[2022-08-08 07:42] LABS: HEMATOCRIT 47 % (40-54); HEMOGLOBIN 15.9 g/dL (13.3-17.7); MEAN CORPUSCULAR HEMOGLOBIN 34 pg (25-34); MEAN CORPUSCULAR HGB CONC 34 g/dL (32-36); MEAN CORPUSCULAR VOLUME 99 fL (80-99); MEAN PLATELET VOLUME 11.9 fL (9.0-12.2); PLATELET COUNT 238 10^3/uL (130-400); WHITE BLOOD COUNT 8.8 10^3/uL (4.3-11.0)
[2022-08-08 07:48] LABS: PROTHROMBIN TIME PATIENT 13.6 SEC (12.2-14.7)
[2022-08-08 07:57] LABS: ALBUMIN 4.2 GM/DL (3.2-4.5); CALCIUM 9.5 MG/DL (8.5-10.1); CREATININE SERUM 0.99 MG/DL (0.60-1.30); POTASSIUM 3.7 MMOL/L (3.6-5.0); TOTAL PROTEIN 7.3 GM/DL (6.4-8.2)
[~2022-08-08 09:00] MED LIST changes: +CARV3.122 PO; +DIGO250T15 PO; +DIGO250T3 PO; +DILT180C48 PO; +DILT180C85 PO; +HEParin (CATH LAB) 2,000 ML IV ONE; +LIDOCAINE 1% INJ 30 ML (XYLOCAINE) VIAL ONE; +MIDAZOLAM 5 MG/5 ML (VERSED) VIAL ONE; +NS IV 1000 ML 1,000 ML IV SCH; +NS IV 1000 ML 1,000 ML ONE; +RIVA20TA PO; +fentaNYL INJ 100 MCG/2 ML AMP ONE
[2022-08-08] MEDS ORDERED: NS IV 1000 ML 1,000 ML IV SCH (09:30)
[2022-08-08] MEDS ORDERED: PATIENT MAY USE OWN MEDS, ALL PO SCH (09:30)
--- NOTE | 2022-08-08 09:30 | Cardiac Procedure Note-CS/ASA ---
Pre-Procedure Note Pre-Op Procedure Note Date of Available H&P: Jul 31, 2022 Date H&P Reviewed: Aug 08, 2022 Time H&P Reviewed: 08:45 History & Physical: H&P Reviewed, No changes noted Conscious Sedation Pre-Proced ASA Score 3 For ASA 3 and 4: Consider anesthesia and medical clearance. Also, for patients with a history of failed moderate sedation consider anesthesia. Airway Lungs Heart ASA score ASA 1: a normal healthy patient ASA 2: a patient with a mild systemic disease (mid diabetes, controlled hypertension, obesity ASA 3: a patient with a severe systemic disease that limits activity (angina, COPD, prior Myocardial infarction) ASA 4: a patient with an incapacitating disease that is a constant threat to life (CHF, renal failure) ASA 5: a moribund patient not expected to survive 24 hrs. (ruptured aneurysm) ASA 6: a declared brain- patient whose organs are being harvested. For emergent operations, add the letter E after the classification Mallampati Classification Grade 1 Sedation Plan Analgesia, Amnesia, Plan communicated to team members The patient is an appropriate candidate to undergo the planned procedure, sedation, and anesthesia. The patient immediately re-assessed prior to indication. GENEVIEVE RIDER MD FACP FAC CCDS Aug 08, 2022 09:30
--- NOTE | 2022-08-08 09:34 | Discharge Inst-Post CATH ---
Discharge Inst-CATH/EP Post Cardiac Cath/EP D/C Inst Follow Up/Plan F/u with Dr Adorno in 2 weeks ACTIVITY * Go Home directly and rest. * Limit activity of the leg (or wrist if it was used) for 7 days including aerobics, swimming, jogging, bicycling, etc. * Restrict stair-climbing for 7 days if possible, if not, climb up with your no n-cath leg, then bring together on the same step. * Avoid lifting, pushing, pulling or excessive movement of the affected ext remity for 7 days. * Customary sexual activity may be resumed after 2 days-use caution not to use a position that strains or causes pain to the affected extremity. * No driving for 24 hours. * NO SMOKING. * Avoid straining for bowel movements for 7 days. * Gentle walking on level ground is allowed. * Returning to work will depend on the type of procedure and the results. Your doctor will discuss this with you. CALL YOUR DOCTOR FOR ANY OF THE FOLLOWING: *If bleeding from the puncture site occurs- Apply gentle pressure to site with clean cloth and call your doctor or EMS. * If a knot or lump forms under the skin, increases in size, or causes pain. * If bruising appears to be worsening or moving further down your leg instead of disappearing. * Temperature above 101 F. CARE OF YOUR GROIN INCISION; * Bruising or purple discoloration of the skin near the puncture site is common. * You may shower only, no bathtub bathing for 5 days. Be careful to avoid slipping as your leg may feel stiff. * If a closure device was used on your femoral artery, please see the attached guide regarding care of the device and your leg. * Leave dressing on FOR 24 hours. CARE OF YOUR WRIST INCISION; * Bruising or purple discoloration of the skin near the puncture site is common. * You may shower. * DO NOT submerge wrist. * Leave dressing on FOR 24 hours. GENEVIEVE ADORNO MD [facility] Aug 08, 2022 09:34
--- NOTE | 2022-08-08 09:34 | Discharge Inst-Cardiology ---
Discharge Inst-Cardiac Discharge Medications Continued Medications: Carvedilol (Carvedilol) 3.125 Mg Tablet 3.125 MG PO BID, TAB Digoxin (Digoxin) 250 Mcg (0.25 Mg) Tablet 250 MCG PO DAILY, TAB Diltiazem HCl (Dilt-Xr) 180 Mg Cap.er.deg 180 MG PO DAILY, TAB Rivaroxaban (Xarelto) 20 Mg Tablet 20 MG PO DAILY, TAB GENEVIEVE RIDER MD [facility]S Aug 08, 2022 09:34
--- NOTE | 2022-08-08 11:52 | CARDIAC CATHETERIZATION ---
DATE OF SERVICE: 08/08/2022 INDICATION FOR PROCEDURE: The patient is a 66-year-old gentleman, who has recently been diagnosed with dilated cardiomyopathy of undetermined etiology. He has also been found to have significant mitral and tricuspid regurgitation. Pulmonary artery systolic pressure is 40 to 45 mmHg. Cardiac catheterization was carried out today after having obtained an informed consent DESCRIPTION OF PROCEDURE: He was brought to the cardiac catheterization laboratory in a fasting state. Right groin was prepared and draped in the usual sterile fashion. A 1% lidocaine was used for local anesthesia. Modified Seldinger technique was used to advance a 5-[place] sheath in the right femoral artery. A 5-[place] JL4 catheter was used for left coronary angiography and 5-[place] JR4 catheter for right coronary angiography. A 5-[place] pigtail catheter was used for left heart catheterization and left ventricular angiography. Subsequently, angiography of the right femoral artery was carried out through the sheath and Mynx was used to achieve hemostasis. He tolerated the procedure well. HEMODYNAMICS: Left ventricular end diastolic pressure, following coronary angiography was 13 mmHg. There was no significant pressure gradient on pullback across the aortic valve. The ascending aortic pressure was 97/63 with a mean of 82 mmHg. CORONARY ANGIOGRAPHY: Left main coronary artery is free of significant disease. Left anterior descending and left circumflex arteries were free of significant disease. Right coronary artery is dominant and free of significant disease. Left ventricular angiography: Left ventricular angiography was carried out in the right anterior oblique and the left anterior oblique projections. Global left ventricular systolic function appears to be moderately impaired. Left ventricular ejection fraction is approximately 40% to 45%. There appeared to be mild mitral regurgitation on these images. CONCLUSIONS: 1. No angiographically significant coronary artery disease. 2. Moderate impairment in global left ventricular systolic function with an ejection fraction of approximately 40% to 45% and moderate global hypokinesis. 3. Mitral regurgitation, on this study, appeared to be mild. DISCUSSION AND RECOMMENDATIONS: Continue current regimen and close clinical followup. After three weeks of uninterrupted anticoagulation, consideration of external electrical cardioversion is recommended. Job ID: [id number] DocumentID: [id number] Dictated Date: 08/08/2022 09:29:26 Bench Jeweler Date: 08/08/2022 11:50:00 Dictated By: GENEVIEVE RIDER MD; MA; FACP; FACC;
== END 2022-08-08 12:50 | disposition home or self-care (01) ==
LOC: CATH 09:00 → SDC 09:48 → CATH 12:50
PROVIDERS: ATTEND Internal Medicine Cardiovascular Disease
DX: I42.0 Dilated cardiomyopathy (principal); I34.0 Nonrheumatic mitral (valve) insufficiency; I48.0 Paroxysmal atrial fibrillation; G47.33 Obstructive sleep apnea (adult) (pediatric); Z79.01 Long term (current) use of anticoagulants
CPT/HCPCS: 80053; 80061; 80162; 85027; 85610; 85730; 87081; 93005; 93458; C1760; C1894; 36415

== ENCOUNTER 2022-12-12 07:57 | Day surgery (SDC) | payer MEDICARE, OTHER ==
[~2022-12-12] VITALS: Ht 187 cm; Wt 134.0 kg
[~2022-12-12 07:57] MED LIST changes: -HEParin (CATH LAB) 2,000 ML IV ONE; -LIDOCAINE 1% INJ 30 ML (XYLOCAINE) VIAL ONE; -MIDAZOLAM 5 MG/5 ML (VERSED) VIAL ONE; -NS IV 1000 ML 1,000 ML IV SCH; -NS IV 1000 ML 1,000 ML ONE; -fentaNYL INJ 100 MCG/2 ML AMP ONE
[2022-12-12] MEDS ORDERED: NS IV 1000 ML 1,000 ML ONE (08:12)
[2022-12-12] MEDS ORDERED: NS IV 1000 ML 1,000 ML IV SCH (08:15)
[2022-12-12] MEDS ORDERED: proPOfol 200 MG/20 ML (DIPRIVAN) VIAL IV ONE (08:24)
[2022-12-12 08:38] VITALS: BP 129/94
[2022-12-12 08:42] LABS: HEMATOCRIT 42 % (40-54); HEMOGLOBIN 14.3 g/dL (13.3-17.7); MEAN CORPUSCULAR HEMOGLOBIN 33 pg (25-34); MEAN CORPUSCULAR HGB CONC 34 g/dL (32-36); MEAN CORPUSCULAR VOLUME 98 fL (80-99); MEAN PLATELET VOLUME 12.1 fL (9.0-12.2); PLATELET COUNT 241 10^3/uL (130-400); WHITE BLOOD COUNT 11.2 10^3/uL (4.3-11.0)
[2022-12-12 08:55] LABS: INR 1.2 (0.8-1.4); PROTHROMBIN TIME PATIENT 15.4 SEC (12.2-14.7)
[2022-12-12] MEDS ORDERED: DILT360C36 PO (08:57)
[2022-12-12] MEDS ORDERED: CARV12.53 PO (08:57)
[2022-12-12 09:04] LABS: ALBUMIN 4.1 GM/DL (3.2-4.5); BILIRUBIN,TOTAL 1.2 MG/DL (0.1-1.0); CALCIUM 9.2 MG/DL (8.5-10.1); CREATININE SERUM 1.09 MG/DL (0.60-1.30); TOTAL PROTEIN 7.4 GM/DL (6.4-8.2)
[2022-12-12 10:05] VITALS: BP 120/83
--- NOTE | 2022-12-12 10:11 | Anesthesia-General Post-Op ---
MAC Patient Condition Mental Status/LOC: Same as Preop Cardiovascular: Satisfactory Nausea/Vomiting: Absent Respiratory: Satisfactory Pain: Controlled Complications: Absent Post Op Complications Complications None Follow Up Care/Instructions Patient Instructions None needed. Anesthesiology Discharge Order Discharge Order Patient is doing well, no complaints, stable vital signs, no apparent adverse anesthesia problems. No complications reported per nursing. VIOLETA MACKAY CRNA Dec 12, 2022 10:11
[2022-12-12 10:15] VITALS: BP 126/94
--- NOTE | 2022-12-12 15:42 | OPERATIVE REPORT ---
DATE OF SERVICE: 12/12/2022 PREOPERATIVE DIAGNOSIS: Atrial fibrillation. POSTOPERATIVE DIAGNOSIS: Atrial fibrillation. PROCEDURE: External electrical cardioversion. The patient is a 67-year-old gentleman with a history of atrial fibrillation. He has been fully anticoagulated with rivaroxaban for several months without any interruption. He came in today for external electrical cardioversion after having provided an informed consent. The nurse artifacts conservator gave short-acting anesthesia. Under anesthesia, he received 120 joules of synchronized shock, which did not convert him to sinus rhythm. The shock was then repeated with 200 joules and he still did not convert to sinus rhythm. He remains stable without any complications. Continuing outpatient followup is advised. Job ID: [id number] DocumentID: [id number] Dictated Date: 12/12/2022 10:34:36 [employer] Source Operations Specialist Date: 12/12/2022 15:40:00 Dictated By: GENEVIEVE RIDER MD; ANA; FACP; FACC;
== END 2022-12-12 10:58 | disposition home or self-care (01) ==
LOC: CATH 07:57
PROVIDERS: ATTEND Internal Medicine Cardiovascular Disease
DX: I48.0 Paroxysmal atrial fibrillation (principal); E66.9 Obesity, unspecified; I42.0 Dilated cardiomyopathy; I08.1 Rheumatic disorders of both mitral and tricuspid valves; Z79.01 Long term (current) use of anticoagulants; Z79.899 Other long term (current) drug therapy; G47.33 Obstructive sleep apnea (adult) (pediatric); Z68.38 Body mass index [BMI] 38.0-38.9, adult
CPT/HCPCS: 36415; 80053; 80061; 85027; 85610; 85730; 87081; 92960; 93005

== ENCOUNTER → 2023-05-07 | Outpatient (CLI) | payer MEDICARE, OTHER ==
[~2023-05-07] MED LIST changes: +CARV12.53 PO; +DILT360C36 PO
== END ==
LOC: CARD 10:03
PROVIDERS: ATTEND Internal Medicine Cardiovascular Disease
DX: I42.0 Dilated cardiomyopathy (principal); I34.0 Nonrheumatic mitral (valve) insufficiency
CPT/HCPCS: 93306

== ENCOUNTER 2023-08-25 20:07 | Outpatient (CLI) | payer MEDICARE, OTHER | END 2023-08-26 06:06 | LOC: SLEEP 20:07 | PROVIDERS: ATTEND Nurse Practitioner Family | DX: G47.33 Obstructive sleep apnea (adult) (pediatric) (principal); G47.10 Hypersomnia, unspecified; R06.83 Snoring | CPT/HCPCS: 95810 ==